=== PATIENT | female | born 1955 | race Caucasian/White ===

== ENCOUNTER 2018-03-14 15:38 | Emergency (ER) | payer OTHER ==
[~2018-03-14] VITALS: Ht 157.5 cm; Wt 73.5 kg
[2018-03-14 16:00] VITALS: BP 150/71
--- NOTE | 2018-03-14 16:06 | NUR ---
PATIENT AMBULATED TO BED 9.
--- NOTE | 2018-03-14 16:20 | NUR ---
PATIENT PRESENTS TO ED WITH COMPLAINTS OF FEVER, RASH ON BACK AND CHEST, AND SWOLLEN EXTREMITIES. PATIENT STATES SHE HAS HAD THESE SYMPTOMS X 1 WEEK. PATIENT DENIES TAKING TEMPERATURE WITH THERMOMETER BUT FEELS HOT AND GETS CHILLS. DENIES HX, DENIES RX. DENIES N/V/D; SKIN IS PINK/WARM/DRY; AAOX4 WITH EVEN AND STEADY GAIT; LUNGS CLEAR BL; HR EVEN AND REGULAR; PT DENIES ANY FEVER, CP, SOB, OR COUGH AT THIS TIME; PATIENT STATES PAIN OF 0/10 AT THIS TIME; VSS; PATIENT POSITIONED FOR COMFORT; HOB ELEVATED; BEDRAILS UP X1; BED DOWN. ER MD MADE AWARE OF PT STATUS.
--- NOTE | 2018-03-14 16:21 | NUR ---
PATIENT ALSO COMPLAINS OF SWOLLEN LYMPH NODES TO THE BACK OF NECK. ED MD MADE AWARE.
[2018-03-14 17:14] VITALS: BP 121/56
== END 2018-03-14 17:14 | disposition home or self-care (01) ==
LOC: MED 15:38
DX: I88.9 Nonspecific lymphadenitis, unspecified (principal); R21 Rash and other nonspecific skin eruption; J45.909 Unspecified asthma, uncomplicated
CPT/HCPCS: 99283

== ENCOUNTER 2020-10-29 12:24 | Emergency (ER) | payer OTHER ==
[~2020-10-29] VITALS: Ht 165.1 cm; Wt 77.1 kg
[2020-10-29 12:32] VITALS: BP 135/75
[2020-10-29 13:38] VITALS: BP 135/75
--- NOTE | 2020-10-29 13:38 | NUR ---
Patient discharged with v/s stable. Written and verbal after care instructions given and explained. Patient verbalized understanding. Ambulatory with steady gait. All questions addressed prior to discharge. Advised to follow up with PMD.
== END 2020-10-29 13:38 | disposition home or self-care (01) ==
LOC: MED 12:24
DX: J45.909 Unspecified asthma, uncomplicated (principal); Z00.01 Encounter for general adult medical examination with abnormal findings; Z86.19 Personal history of other infectious and parasitic diseases
CPT/HCPCS: 71045; 99283